=== PATIENT | female | born 1985 | race Caucasian/White ===

== ENCOUNTER 2025-01-04 16:30 | Inpatient (IN) | payer BC ==
[2025-01-04] MEDS ORDERED: Hydrocortisone Sod Succ/PF 100 mg/2 ml Vial ONE (18:22)
[2025-01-04 19:40] LABS: #Basophils 0.08 10x3/uL (0.0-0.2); #Eosinophils 0.12 10x3/uL (0.0-0.7); #Monocytes 0.75 10x3/uL (0.11-0.59); #Neutrophils 5.30 10x3/uL (1.40-6.50); %Basophils 0.8 % (0.0-1.0); %Eosinophils 1.2 % (0.0-10.0); %Lymphocytes 38.9 % (21.0-51.0); %Monocytes 7.3 % (0.0-10.0); %Neutrophils 51.6 % (42.0-75.0); Hematocrit 38.5 % (36.0-47.0); Hemoglobin 12.6 g/dL (12.0-16.0); Mean Corpuscular Hemoglobin 29.7 pg (27.0-31.0); Mean Corpuscular Volume 90.8 fL (78.0-98.0); Platelet Count 321 10x3/uL (130-400); Red Blood Cell (RBC) Count 4.24 mill/uL (4.20-5.40); White Blood Cell (WBC) Count 10.26 10x3/uL (4.8-10.8)
[2025-01-04 19:48] LABS: BHCG - Serum Negative (NEGATIVE); Pregs Control Background? CLEAR/WHITE (CLR/WHITE); Pregs Control Bar Appear? YES (CONTROL BAR)
[2025-01-04 19:58] LABS: ALT (SGPT) 34 U/L (Less than 34); AST (SGOT) 22 U/L (11-34); Albumin 3.8 g/dL (3.1-4.5); Alkaline Phosphatase 43 U/L (40-110); Anion Gap 12 mmol/L (10-20); BUN (Urea Nitrogen) 11 mg/dL (7.0-18.7); Bilirubin, Total 0.3 mg/dL (0.3-1.2); CK (CPK) 48 U/L (29-168); Calc. Creatinine Clearance 0 mL/min (70-130); Calcium 9.1 mg/dL (7.8-10.44); Carbon Dioxide 21 mmol/L (22-29); Chloride 108 mmol/L (98-107); Globulin 3.1 g/dL (2.4-3.5); Glucose 88 mg/dL (70-105); Potassium 4.1 mmol/L (3.5-5.1); Sodium 137 mmol/L (136-145)
[2025-01-04] MEDS ORDERED: Senokot S 8.6-50 MG TAB PO PRN (22:32)
[2025-01-05] MEDS: Cyclobenzaprine 10 MG TAB PO SCH (00:14)
[2025-01-05] MEDS: METHYLPREDNISOLONE SOD SUCC IVPB SCH ×2 (00:17→01:17)
[2025-01-05] MEDS: SODIUM CHLORIDE 0.9% IVPB SCH ×2 (00:17→01:17)
[2025-01-05 01:00] VITALS: BMI 29.6
[2025-01-05] MEDS: Pantoprazole 40 MG VIAL IVP SCH ×2 (01:10→09:08)
[2025-01-05 03:48] LABS: #Basophils Less than 0.03 10x3/uL (0.0-0.2); #Eosinophils Less than 0.03 10x3/uL (0.0-0.7); #Monocytes Less than 0.03 10x3/uL (0.11-0.59); #Neutrophils 6.35 10x3/uL (1.40-6.50); %Basophils 0.1 % (0.0-1.0); %Eosinophils 0.0 % (0.0-10.0); %Lymphocytes 9.1 % (21.0-51.0); %Monocytes 0.3 % (0.0-10.0); %Neutrophils 90.2 % (42.0-75.0); Hematocrit 41.3 % (36.0-47.0); Hemoglobin 13.5 g/dL (12.0-16.0); Mean Corpuscular Hemoglobin 29.4 pg (27.0-31.0); Mean Corpuscular Volume 90.0 fL (78.0-98.0); Platelet Count 292 10x3/uL (130-400); Red Blood Cell (RBC) Count 4.59 mill/uL (4.20-5.40); White Blood Cell (WBC) Count 7.04 10x3/uL (4.8-10.8)
[2025-01-05 04:43] LABS: ALT (SGPT) 35 U/L (Less than 34); AST (SGOT) 22 U/L (11-34); Albumin 3.7 g/dL (3.1-4.5); Alkaline Phosphatase 46 U/L (40-110); Anion Gap 12 mmol/L (10-20); BUN (Urea Nitrogen) 9 mg/dL (7.0-18.7); Bilirubin, Total 0.3 mg/dL (0.3-1.2); Calc. Creatinine Clearance 123 mL/min (70-130); Calcium 8.9 mg/dL (7.8-10.44); Carbon Dioxide 19 mmol/L (22-29); Chloride 108 mmol/L (98-107); Globulin 3.2 g/dL (2.4-3.5); Glucose 181 mg/dL (70-105); Potassium 4.1 mmol/L (3.5-5.1); Sodium 135 mmol/L (136-145)
[2025-01-05] MEDS ORDERED: [UNRECOGNIZED DRUG - OTHER] PO SCH (09:00)
[2025-01-05] MEDS ORDERED: LEVONORGESTREL PO SCH (09:00)
[2025-01-05] MEDS ORDERED: ETHINYL ESTRADIOL PO SCH (09:00)
[2025-01-05] MEDS: Enoxaparin 40 MG (0.4 mL) SYRINGE SC SCH (09:07)
[2025-01-05] MEDS: Magnesium Oxide 400 MG TAB PO SCH (09:08)
[2025-01-05] MEDS: Oxybutynin 5 MG TAB PO SCH (09:08)
[2025-01-05] MEDS: Transdermal Patch Removal TOP SCH (22:34)
[2025-01-06 05:13] LABS: ALT (SGPT) 44 U/L (Less than 34); AST (SGOT) 25 U/L (11-34); Albumin 3.5 g/dL (3.1-4.5); Alkaline Phosphatase 39 U/L (40-110); Anion Gap 9 mmol/L (10-20); BUN (Urea Nitrogen) 12 mg/dL (7.0-18.7); Bilirubin, Total 0.3 mg/dL (0.3-1.2); Calc. Creatinine Clearance 123 mL/min (70-130); Calcium 8.8 mg/dL (7.8-10.44); Carbon Dioxide 21 mmol/L (22-29); Chloride 112 mmol/L (98-107); Globulin 2.9 g/dL (2.4-3.5); Glucose 175 mg/dL (70-105); Potassium 3.9 mmol/L (3.5-5.1); Sodium 138 mmol/L (136-145)
[2025-01-06 05:35] LABS: #Basophils Less than 0.03 10x3/uL (0.0-0.2); #Eosinophils Less than 0.03 10x3/uL (0.0-0.7); #Monocytes 0.21 10x3/uL (0.11-0.59); #Neutrophils 18.25 10x3/uL (1.40-6.50); %Basophils 0.1 % (0.0-1.0); %Eosinophils 0.0 % (0.0-10.0); %Lymphocytes 3.9 % (21.0-51.0); %Monocytes 1.1 % (0.0-10.0); %Neutrophils 94.4 % (42.0-75.0); Hematocrit 37.5 % (36.0-47.0); Hemoglobin 12.3 g/dL (12.0-16.0); Mean Corpuscular Hemoglobin 29.9 pg (27.0-31.0); Mean Corpuscular Volume 91.2 fL (78.0-98.0); Platelet Count 295 10x3/uL (130-400); Red Blood Cell (RBC) Count 4.11 mill/uL (4.20-5.40); White Blood Cell (WBC) Count 19.34 10x3/uL (4.8-10.8)
[2025-01-07 05:17] LABS: ALT (SGPT) 57 U/L (Less than 34); AST (SGOT) 22 U/L (11-34); Albumin 3.4 g/dL (3.1-4.5); Alkaline Phosphatase 36 U/L (40-110); Anion Gap 17 mmol/L (10-20); BUN (Urea Nitrogen) 13 mg/dL (7.0-18.7); Bilirubin, Total 0.3 mg/dL (0.3-1.2); Calc. Creatinine Clearance 123 mL/min (70-130); Calcium 8.6 mg/dL (7.8-10.44); Carbon Dioxide 21 mmol/L (22-29); Chloride 104 mmol/L (98-107); Globulin 2.6 g/dL (2.4-3.5); Glucose 157 mg/dL (70-105); Potassium 4.0 mmol/L (3.5-5.1); Sodium 138 mmol/L (136-145)
[2025-01-07 08:32] LABS: #Basophils Less than 0.03 10x3/uL (0.0-0.2); #Eosinophils Less than 0.03 10x3/uL (0.0-0.7); #Monocytes 0.34 10x3/uL (0.11-0.59); #Neutrophils 16.74 10x3/uL (1.40-6.50); %Basophils 0.1 % (0.0-1.0); %Eosinophils 0.0 % (0.0-10.0); %Lymphocytes 3.3 % (21.0-51.0); %Monocytes 1.9 % (0.0-10.0); %Neutrophils 94.0 % (42.0-75.0); Hematocrit 37.6 % (36.0-47.0); Hemoglobin 12.3 g/dL (12.0-16.0); Mean Corpuscular Hemoglobin 29.7 pg (27.0-31.0); Mean Corpuscular Volume 90.8 fL (78.0-98.0); Platelet Count 283 10x3/uL (130-400); Red Blood Cell (RBC) Count 4.14 mill/uL (4.20-5.40); White Blood Cell (WBC) Count 17.79 10x3/uL (4.8-10.8)
[2025-01-07 11:42] LABS: Bacteria/HPF 3+ HPF (None Seen); Glucose, Urine (Dipstick) 200 mg/dL (Negative); Leukocyte Negative Leu/uL (Negative); Protein, Urine (Dipstick) Negative (Neg-Trace); Specific Gravity, Urine 1.028 (1.002-1.036); WBC/HPF 0-3 HPF (0-3)
[2025-01-07] MEDS: Cyclobenzaprine 10 MG TAB PO PRN (12:26)
[2025-01-07] MEDS ORDERED: Dextrose 50% Abboject 50 ML SYRINGE SLOW IVP PRN (12:36)
[2025-01-07] MEDS ORDERED: Glucagon 1 MG/ML KIT IM PRN (12:36)
[2025-01-08] MEDS: methylPREDNISolone Sod Succ 1 GM in Sodium Chloride 0.9% 250 ML 250 ML IVPB SCH (03:03)
[2025-01-08 04:12] LABS: #Basophils Less than 0.03 10x3/uL (0.0-0.2); #Eosinophils Less than 0.03 10x3/uL (0.0-0.7); #Monocytes 0.43 10x3/uL (0.11-0.59); #Neutrophils 11.99 10x3/uL (1.40-6.50); %Basophils 0.1 % (0.0-1.0); %Eosinophils 0.0 % (0.0-10.0); %Lymphocytes 7.2 % (21.0-51.0); %Monocytes 3.2 % (0.0-10.0); %Neutrophils 88.8 % (42.0-75.0); Hematocrit 38.0 % (36.0-47.0); Hemoglobin 12.3 g/dL (12.0-16.0); Mean Corpuscular Hemoglobin 29.9 pg (27.0-31.0); Mean Corpuscular Volume 92.2 fL (78.0-98.0); Platelet Count 267 10x3/uL (130-400); Red Blood Cell (RBC) Count 4.12 mill/uL (4.20-5.40); White Blood Cell (WBC) Count 13.50 10x3/uL (4.8-10.8)
[2025-01-08 04:26] LABS: ALT (SGPT) 64 U/L (Less than 34); AST (SGOT) 22 U/L (11-34); Albumin 3.3 g/dL (3.1-4.5); Alkaline Phosphatase 37 U/L (40-110); Anion Gap 13 mmol/L (10-20); BUN (Urea Nitrogen) 12 mg/dL (7.0-18.7); Bilirubin, Total 0.3 mg/dL (0.3-1.2); Calc. Creatinine Clearance 142 mL/min (70-130); Calcium 8.6 mg/dL (7.8-10.44); Carbon Dioxide 23 mmol/L (22-29); Chloride 105 mmol/L (98-107); Globulin 2.8 g/dL (2.4-3.5); Glucose 146 mg/dL (70-105); Potassium 4.1 mmol/L (3.5-5.1); Sodium 137 mmol/L (136-145)
[2025-01-08 09:56] VITALS: BP 125/60; TEMP 98
== END 2025-01-08 12:00 | disposition home or self-care (01) | DRG 60 ==
LOC: ERS 16:30 → 2SE 22:31 → OBSVTOIN 22:31
PROVIDERS: ADMIT Family Medicine; ATTEND Family Medicine
PROC: 05HY33Z Insertion of Infusion Device into Upper Vein, Percutaneous Approach (ICD-10-PCS; principal; 2025-01-05)
DX: G35 Multiple sclerosis (principal); M51.24 Other intervertebral disc displacement, thoracic region; F32.A Depression, unspecified; K59.00 Constipation, unspecified; D72.829 Elevated white blood cell count, unspecified; N80.00 Endometriosis of the uterus, unspecified; R00.1 Bradycardia, unspecified; Z79.899 Other long term (current) drug therapy; Z79.891 Long term (current) use of opiate analgesic; T38.0X5A Adverse effect of glucocorticoids and synthetic analogues, initial encounter; Z88.8 Allergy status to other drugs, medicaments and biological substances; M50.221 Other cervical disc displacement at C4-C5 level
CPT/HCPCS: 36415; 36416; 70553; 72156; 72157; 76376; 80053; 81001; 82550; 84703; 85025; 93005; 93010; 96365; J1720; J2470; J2930; J7050